=== PATIENT | female | born 1965 | race Caucasian/White ===

== ENCOUNTER 2023-01-18 12:58 | Emergency (ER) | payer OTHER, MEDICAID ==
[~2023-01-18] VITALS: Ht 162.6 cm; Wt 65.8 kg
[2023-01-18 13:00] VITALS: BP 104/61
--- NOTE | 2023-01-18 13:10 | NUR ---
BIBA BLS TO ER [facility]
[2023-01-18 14:04] LABS: BASOPHILS % (AUTO) 0.7 % (0.0-2.0); EOSINOPHILS # (AUTO) 0.2 K/uL (0-0.4); EOSINOPHILS % (AUTO) 3.2 % (0.0-4.0); HEMATOCRIT 34.8 % (36-48); HEMOGLOBIN 12.1 g/dL (12.0-16.0); LYMPHOCYTES # (AUTO) 1.5 K/uL (2.5-16.5); MEAN CORPUSCULAR HEMOGLOBIN 29 pg (27-31); MEAN CORPUSCULAR HGB CONC 35 g/dL (33-37); MEAN CORPUSCULAR VOLUME 84.7 fL (80-94); MONOCYTES # (AUTO) 0.7 K/uL (0.8-1.0); MONOCYTES % (AUTO) 12.9 % (1.7-9.3); NEUTROPHILS # (AUTO) 2.9 K/uL (1.8-7.7); NEUTROPHILS % (AUTO) 55.2 % (42.2-75.2); PLATELET COUNT (AUTO) 259 K/uL (140-450); RED BLOOD CELL COUNT(AUTO) 4.11 MIL/uL (4.20-5.40); RED CELL DISTRIBUTION WIDTH 13.5 % (11.6-13.7); WHITE BLOOD COUNT (AUTO) 5.3 K/uL (4.8-10.8)
[2023-01-18] MEDS ORDERED: HYDROmorphone PFS 2 MG/ML SYR IVP ONE (14:10)
[2023-01-18 14:25] LABS: ALBUMIN 3.8 g/dL (3.4-5.0); ANION GAP 8.4 (8-16); CARBON DIOXIDE 35.8 mmol/L (21-32); CREATININE 0.7 mg/dL (0.6-1.3); POTASSIUM 3.2 mmol/L (3.5-5.1); TOTAL BILIRUBIN 0.2 mg/dL (0.0-1.0)
[2023-01-18 14:36] LABS: APPEARANCE,URINE CLEAR (CLEAR); BILIRUBIN,URINE NEGATIVE (NEGATIVE); BLOOD, URINE NEGATIVE (NEGATIVE); COLOR,URINE YELLOW (YELLOW); LEUKOCYTE ESTERASE ,URINE NEGATIVE (NEGATIVE); NITRITE, URINE NEGATIVE (NEGATIVE); UGLUCOSE NEGATIVE (NEGATIVE)
--- NOTE | 2023-01-18 15:11 | NUR ---
MOVED TO ER BED 9
[2023-01-18] MEDS ORDERED: HYDROmorphone 1 MG/ML AMP ONE (15:46)
--- NOTE | 2023-01-18 17:00 | NUR ---
AMBULATES TO BR AND BACK WITHOUT 02, TOLERATING WELL, SPEAKS FULL SENTENCES
[2023-01-18] MEDS ORDERED: KCL 20 MEQ IN 100 mL PREMIX 200 ML IV ONE (17:10)
[2023-01-18] MEDS ORDERED: SODIUM PHOS / POTASSIUM PHOS 1 PKT PDR PO SCH (17:20)
[2023-01-18] MEDS ORDERED: ALPRAZolam 0.5 MG TAB PO ONE (18:00)
--- NOTE | 2023-01-18 19:27 | NUR ---
Meal provided to pt; tolerated well.
[2023-01-18 20:35] VITALS: BP 105/61
--- NOTE | 2023-01-18 20:37 | NUR ---
Patient discharged with v/s stable. Written and verbal after care instructions given and explained. Patient verbalized understanding. Ambulatory with steady gait. All questions addressed prior to discharge. Advised to follow up with PMD.
== END 2023-01-18 20:37 | disposition home or self-care (01) ==
LOC: MED 12:58
DX: R10.84 Generalized abdominal pain (principal)
CPT/HCPCS: 36415; 74177; 80053; 81003; 83690; 85025; 96374; 99285; J1170; Q9967